=== PATIENT | female | born 1965 | race Caucasian/White ===

== ENCOUNTER → 2017-02-01 | Outpatient (CLI) | payer BC ==
--- NOTE | 2017-02-02 12:05 | CT ---
CT abdomen pelvis without contrast Indication: Renal stone. Technique: Helical images through the abdomen and pelvis without contrast. Coronal and sagittal refor mats provided. Limited images through the lower chest shows no acute abnormality. Review of bone windows shows no de structive osseous lesion. Abdomen: The gallbladder is absent. The liver, spleen, pancreas and adrenal glands are normal. The st omach and small bowel are normal. The colon and appendix are normal. Vascular plaque is noted. There are nonobstructing left renal stones in the left upper pole. Two stones are seen on axial image 27, l argest measuring 3 mm. There is moderate right hydroureteronephrosis with large stone in the distal r ight ureter measuring 8 mm on axial image 71 and causing the obstruction. Punctate left lower pole no nobstructing renal stone seen on sagittal image 50 Pelvis: The urinary bladder and rectum are normal. Uterus is absent. No adnexal region lesion seen.. Impression: 1. Moderate right hydroureteronephrosis with stone in the distal right ureter causing the obstruction measuring 8 mm. 2. Bilateral nonobstructing renal stones, vascular plaque and other incidental findings as above. 3. Old compression deformity of L1, presumably chronic. Quick Reported By:
== END | disposition home or self-care (01) | DRG 552 ==
LOC: RAD 12:07
PROVIDERS: ATTEND Nurse Practitioner Family
DX: M54.5 Low back pain (principal); R10.84 Generalized abdominal pain; M54.89 Other dorsalgia; R31.9 Hematuria, unspecified; N13.1 Hydronephrosis with ureteral stricture, not elsewhere classified
CPT/HCPCS: 74176